=== PATIENT | female | born 1990 | race Caucasian/White ===

== ENCOUNTER 2019-01-09 08:41 | Emergency (ER) | payer OTHER, MEDICAID, SELFPAY ==
[2019-01-09 08:39] VITALS: BP 137/87; PULSE 74; RESP 16; TEMP 36.4; O2SAT 98; BMI 21.9
--- NOTE | 2019-01-09 08:41 | ED.CHESTPAIN ---
HPI - Chest Pain General Chief Complaint: Chest Pain Stated Complaint: Chest Pain Time Seen by Provider: 01/09/19 08:41 Source: patient Mode of arrival: EMS Limitations: no limitations History of Present Illness HPI narrative: 28-year-old otherwise healthy female here for evaluation of little over 24 hours of chest pressure and shaking and problems catching her breath. She states this started yesterday morning when she was watching TV. States that she has never had an anxiety issue in the past however that is which she thought this was when initially started. Recently she did have 1 prior episode of similar shaking symptoms that lasted shorter than this. Has not tried anything for symptoms prior to arrival. Arrived by EMS. No IV started or EKG performed by EMS prior to arrival. Related Data Previous Rx's Medication Instructions Recorded lorazepam [Ativan] 1 mg PO BID PRN #6 tab 01/09/19 Allergies Allergy/AdvReac Type Severity Reaction Status Date / Time No Known Drug Allergies Allergy Verified 01/09/19 08:44 Review of Systems Constitutional Denies fever(s) and Denies headache(s) ENT Ears, Nose, Mouth, and Throat: Denies headache(s) and Denies disequilibrium Cardiovascular Reports chest pain, Reports rapid heart rate, Denies pedal edema, Denies edema, Reports palpitations and Reports dyspnea Respiratory Reports dyspnea Gastrointestinal Gastrointestinal: Denies abdominal pain, Denies nausea and Denies vomiting Musculoskeletal Denies myalgias and Denies arthralgias Comments: Arm shaking Integumentary/Breasts Denies rash Neurologic Denies headache(s), Denies tremor(s) and Denies disequilibrium Endocrine Reports palpitations Hematologic/Lymphatic Denies easy bleeding and Denies easy bruising [facility] Medical History Healthy adult (Acute) Social History Smoking Status: Current every day smoker Social History Smoking Status: Current every day smoker Exam Initial Vital Signs Initial Vital Signs: Vital Signs Temperature 97.6 F 01/09/19 08:39 Pulse Rate 74 01/09/19 08:39 Respiratory Rate 16 01/09/19 08:39 Blood Pressure 137/87 01/09/19 08:39 Pulse Oximetry 98 01/09/19 08:39 Const General: cooperative, well groomed and No acute distress Orientation: alert, awake and oriented x3 HENMT Head: normal to inspection and normocephalic Resp Effort & Inspection: normal respiratory effort and able to speak in complete sentences Cardio Rate: regular rate Rhythm: regular rhythm Skin Lesions: no lesions Rashes: no rashes Neuro General: alert, awake and oriented x3 Extrem General: normal to inspection, capillary refill normal and No edema Psych Appearance: grossly normal and well kempt Other: Anxious appearing Scores PERC Score Age greater than or equal to 50 years: No Heart rate greater than or equal to 100 bpm: No Room Air O2 Sat less than 95%: No Unilateral leg swelling: No Recent trauma or surgery: No Hemoptysis: No Prior PE or DVT: No Hormone Use: No Total PERC Score: 0 Course Orders Ordered: ED Orders 01/09/19 08:41 XR chest 1V Stat EKG-12 Lead Stat 01/09/19 09:07 FLU A and B [Influenza A and B by PCR Rapid] Stat 01/09/19 09:12 Basic Metabolic Panel Stat Complete Blood Count AUTO DIFF Stat Troponin I Stat Discontinued Medications Lorazepam (Ativan) 1 mg PO NOW ONE Stop: 01/09/19 08:56 Last Admin: 01/09/19 09:01 Dose: 1 mg Vital Signs - 8 hr 01/09/19 08:39 01/09/19 09:30 Temperature 97.6 F Pulse Rate 74 61 Respiratory Rate 16 20 Blood Pressure 137/87 Blood Pressure [Right Arm] 110/68 Pulse Oximetry 98 99 MDM - Chest Pain Lab Data Attestation: I reviewed the patient's lab results. Result diagrams: 01/09/19 09:12 01/09/19 09:12 Lab Results 01/09/19 01/09/19 01/09/19 Range/Units 09:07 09:12 09:12 WBC 5.3 (4.5-11.0) X10^3/uL RBC 4.45 (4.0-5.2) X10^6/uL Hgb 14.4 (12.0-16.0) g/dL Hct 41.4 (36-46) % MCV 92.9 (80-100) fL MCH 32.3 (26-34) PG MCHC 34.8 (30-36) % RDW 12.8 (11.6-14.8) % Plt Count 218 (150-400) X10^3/uL Neut % (Auto) 53.6 (50-75) % Lymph % (Auto) 37.0 (25-40) % [place] % (Auto) 7.6 (3-14) % Eos % (Auto) 1.1 L (2-4) % Baso % (Auto) 0.7 (0-2) % Neut # (Auto) 2800 (8329-4592) /uL Lymph # (Auto) 1900 (2375-0745) /uL [place] # (Auto) 400 (0-900) /uL Eos # (Auto) 100 (0-450) /uL Baso # (Auto) 0 (0-100) /uL Sodium 139 (137-145) mmol/L Potassium 3.5 (3.4-5.1) mmol/L Chloride 107 (98-107) mmol/L Carbon Dioxide 20 L (22-32) mmol/L BUN 10 (7-17) mg/dL Creatinine 0.70 (0.52-1.04) mg/dL Estimated GFR > 60.0 (>60) mL/min BUN/Creatinine Ratio 14.3 (6-22) Glucose 95 (70-100) mg/dL Calcium 9.3 (8.4-10.2) mg/dL Troponin I < 0.012 (0.01-0.034) ng/mL Influenza A & B (PCR) Negative (Negative) Imaging Data Chest x-ray: Radiologist's impression: [place] [address] XRay Report Signed Patient: Ladan Tavarez#: [id number] : 1990Acct:[id number] Age/Sex: 28 FDate of Service: 01/09/19 Loc: ED Accession Number: [id number] Procedure: XR chest 1V Ordering Provider: Surya Tan D.O. PROCEDURE: XR CHEST 1V INDICATIONS: Chest pain TECHNIQUE: One view of the chest was acquired. COMPARISON: None. FINDINGS: Surgical changes and devices: None. Lungs and pleura: Lungs are clear. No pleural effusions or pneumothorax. Mediastinum: Mediastinal contours appear normal. Heart size is normal. Bones and chest wall: No suspicious bony lesions. Overlying soft tissues appear unremarkable. IMPRESSION: Normal for age, source of current chest pain symptoms is not seen. Dictated by: Richard Callahan M.D. on 01/09/2019 at 9:01 Approved by: Richard Callahan M.D. on 01/09/2019 at 9:01 ECG Data Attestation: I personally reviewed and interpreted this ECG as follows: Prior ECG tracings: not available for review Interpretation: Sinus rhythm Ventricular rate is 72 Wandering baseline secondary to the patient's shaking Normal QRS Normal axis No ST T wave changes MDM Narrative Medical decision making narrative: Workup here in the emergency department was negative. Patient low risk for ACS, low risk for PE, feels much better after the Ativan. I have a strong suspicion that this was anxiety related. Was sent home with a few Ativan pills. She was instructed to make contact with the primary care doctor for long-term follow-up. She was given return precautions. She expressed understanding and agreement with plan. Discharge Plan Departure Patient Disposition: Home Clinical Impression: Anxiety Instructions: Anxiety and Panic Attacks (Alternative Therapy), DI for Anxiety -- Adult Activity Restrictions/Additional Instructions: I do recommend that you make contact with your insurance company to obtain all of your numbers and then make contact with an area primary provider to establish care. Return to the emergency department for any new or worsening symptoms Prescriptions: New lorazepam [Ativan] 1 mg tablet 1 mg PO BID PRN (Reason: anxiety) Qty: 6 RF: 0
[2019-01-09 09:00] VITALS: BP 122/74; PULSE 72; RESP 12; O2SAT 99
[2019-01-09] MEDS: LORazepam 1 MG TABLET PO (09:01)
[2019-01-09 09:30] VITALS: BP 110/68; PULSE 61; RESP 20; O2SAT 99
[2019-01-09 09:41] LABS: Add Manual Diff / Slide Review NO; Basophils Absolute Auto 0 /uL (0-100); Basophils Percent Auto 0.7 % (0-2); Eosinophils Absolute Auto 100 /uL (0-450); Eosinophils Percent Auto 1.1 % (2-4); Hematocrit 41.4 % (36-46); Hemoglobin 14.4 g/dL (12.0-16.0); Lymphocytes Absolute Auto 1900 /uL (1100-4500); Mean Corpuscular HGB Conc 34.8 % (30-36); Mean Corpuscular Hemoglobin 32.3 PG (26-34); Mean Corpuscular Volume 92.9 fL (80-100); Monocytes Absolute Auto 400 /uL (0-900); Monocytes Percent Auto 7.6 % (3-14); Neutrophils Absolute Auto 2800 /uL (1500-7000); Neutrophils Percent Auto 53.6 % (50-75); Platelet Count 218 X10^3/uL (150-400); Red Blood Cell Count 4.45 X10^6/uL (4.0-5.2); Red Cell Distribution Width 12.8 % (11.6-14.8); White Blood Cell Count 5.3 X10^3/uL (4.5-11.0)
[2019-01-09 09:44] LABS: Influenza A and B by PCR Rapid Negative (Negative)
[2019-01-09 09:47] LABS: BUN Creatinine Ratio 14.3 (6-22); Blood Urea Nitrogen 10 mg/dL (7-17); Calcium 9.3 mg/dL (8.4-10.2); Carbon Dioxide 20 mmol/L (22-32); Chloride 107 mmol/L (98-107); Estimated Glomerular Filt Rate > 60.0 mL/min (>60); Glucose 95 mg/dL (70-100); HEMOLYSIS < 15 (0-50); Potassium 3.5 mmol/L (3.4-5.1); Sodium 139 mmol/L (137-145)
[2019-01-09 09:59] LABS: Troponin I < 0.012 ng/mL (0.01-0.034)
[2019-01-09 10:00] VITALS: BP 98/57; PULSE 64; RESP 16; O2SAT 99
== END 2019-01-09 10:18 | disposition home or self-care (01) ==
PROVIDERS: Emergency Provider Emergency Medicine
DX: F41.9 Anxiety disorder, unspecified (principal); R06.00 Dyspnea, unspecified
CPT/HCPCS: 36415; 71045; 80048; 84484; 85025; 87400; 93005; 93010; 99283; 99285

== ENCOUNTER → 2021-10-05 13:42 | Outpatient (CLI) | payer OTHER, MEDICAID, SELFPAY ==
[2021-10-05 14:14] LABS: COVID19 -Nasal RAPID POSITIVE (Negative)
== END ==
PROVIDERS: Referring Provider Physician Assistant; Visit Provider Physician Assistant
DX: U07.1 COVID-19 (principal); Z20.822 Contact with and (suspected) exposure to COVID-19; J02.9 Acute pharyngitis, unspecified
CPT/HCPCS: 87070; 87147; 87186; 87635